=== PATIENT | female | born 1945 | race Caucasian/White ===

== ENCOUNTER 2020-03-12 10:18 | Emergency (ER) | payer MEDICARE, OTHER ==
[~2020-03-12] VITALS: Ht 160 cm; Wt 68.9 kg
[2020-03-12] MEDS ORDERED: HYDROMORPHONE 2 MG/1 ML DISP.SYRIN ONE (11:29)
[2020-03-12] MEDS ORDERED: ONDANSETRON 4 MG/2 ML VIAL ONE (11:29)
[2020-03-12] MEDS ORDERED: ONDANSETRON 4 MG/2 ML VIAL IM ONE (11:30)
[2020-03-12] MEDS ORDERED: HYDROMORPHONE 1 MG/1 ML DISP.SYRIN IM ONE (11:30)
--- NOTE | 2020-03-12 11:38 | NUR ---
PT WAS EVALUATED BY DR IBRAHIM. PT WAS D/C'd TO HOME . D/C INSTRUCTIONS GIVE TO THE PT BY DR IBRAHIM.
[2020-03-12 11:39] VITALS: BP 142/68
== END 2020-03-12 11:40 | disposition home or self-care (01) ==
LOC: ER 10:18
DX: M54.41 Lumbago with sciatica, right side (principal)
CPT/HCPCS: 96372 ×2; 99284; J1170; J2405; A4663

== ENCOUNTER 2021-08-31 11:37 | Emergency (ER) | payer MEDICARE, OTHER ==
[~2021-08-31] VITALS: Ht 165.1 cm; Wt 64.9 kg
[2021-08-31] MEDS ORDERED: GABA300C PO ×2 (12:21→12:23)
--- NOTE | 2021-08-31 12:36 | NUR ---
PATIENT WAS SEEN BY MD. KNEE IMMOBILIZER APPLIED AND INSTRUCTIONS ON USE GIVEN AND DEMONSTRATED. DC, RX AND FOLLOW UP INSTRUCTIONS GIVEN AND EXPLAINED TO PATIENT WHO STATES SHE UNDERSTANDS ALL INSTRUCTIONS
== END 2021-08-31 12:37 | disposition home or self-care (01) ==
LOC: ER 11:37
DX: M25.462 Effusion, left knee (principal); M35.3 Polymyalgia rheumatica; Z96.652 Presence of left artificial knee joint; R03.0 Elevated blood-pressure reading, without diagnosis of hypertension
CPT/HCPCS: A4663

== ENCOUNTER 2023-06-04 20:23 | Emergency (ER) | payer MEDICARE, OTHER ==
[~2023-06-04] VITALS: Ht 157.5 cm; Wt 65.8 kg
[~2023-06-04 20:23] MED LIST: GABA300C PO
[2023-06-04] MEDS ORDERED: NITROGLYCERIN 0.4 MG/TAB BOTTLE SL ONE ×2 (20:45→20:50)
[2023-06-04] MEDS ORDERED: NITROGLYCERIN OINT 1 GM PACKET TP ONE ×2 (20:45→20:50)
[2023-06-04] MEDS ORDERED: SWABABLE VALVE TRANSFER SET EA MC ONE (20:59)
[2023-06-04] MEDS ORDERED: IOHEXOL 350 100 ML INFUS..BTL ONE (20:59)
[2023-06-04] MEDS ORDERED: IV NORMAL SALINE 250 ML IV ONE (20:59)
[2023-06-04 21:08] LABS: CALCIUM 9.1 mg/dL (8.5-10.1); CARBON DIOXIDE 28 mmol/L (21-32); CHLORIDE 101 mmol/L (98-107); CREATININE 1.5 mg/dL (0.6-1.3); GLUCOSE 98 mg/dL (74-106); POTASSIUM 3.7 mmol/L (3.5-5.1); SODIUM SERUM 138 mmol/L (136-145); UREA NITROGEN, BLOOD 19 mg/dL (7-18)
[2023-06-04 21:15] LABS: BASOPHILS # (AUTO) 0.1 K/UL (0.0-0.2); BASOPHILS % (AUTO) 1.7 % (0.0-2.0); DIFFERENTIAL COMMENT 0; EOSINOPHILS # (AUTO) 0.1 K/uL (0.0-0.7); EOSINOPHILS % (AUTO) 1.5 % (0.0-7.0); HEMATOCRIT 34.7 % (31.2-41.9); LYMPHOCYTES # (AUTO) 1.6 K/uL (0.8-4.8); LYMPHOCYTES % (AUTO) 24.8 % (20.5-51.5); MEAN CORPUSCULAR HEMOGLOBIN 30.1 uug (24.7-32.8); MEAN CORPUSCULAR HGB CONC 35 g/dL (32.3-35.6); MEAN CORPUSCULAR VOLUME 87.2 fL (75.5-95.3); MONOCYTES # (AUTO) 0.2 K/uL (0.1-1.30); MONOCYTES % (AUTO) 2.5 % (0.0-11.0); NEUTROPHILS # (AUTO) 4.6 K/uL (1.8-8.9); NEUTROPHILS % (AUTO) 69.5 % (38.5-71.5); PLATELET COUNT (AUTO) 251 K/uL (179-408); RED BLOOD CELL COUNT(AUTO) 3.98 MIL/uL (3.63-4.92); RED CELL DISTRIBUTION WIDTH 13.8 % (12.3-17.7); WHITE BLOOD COUNT (AUTO) 6.6 K/uL (3.8-11.8)
[2023-06-04 21:19] LABS: ALANINE AMINOTRANSFERASE 118 U/L (14-59); ALBUMIN 3.7 g/dL (3.4-5.0); ALKALINE PHOSPHATASE 94 U/L (50-136); ASPARTATE AMINOTRANSFERASE 60 U/L (15-37); BILIRUBIN,DIRECT 0.2 mg/dL (0.0-0.2); BILIRUBIN,TOTAL 0.5 mg/dL (0.2-1.0); NT-PRO BNP 114 pg/mL (0-125); TOTAL PROTEIN, SERUM 6.8 g/dL (6.4-8.2)
[2023-06-04] MEDS ORDERED: DICYCLOMINE HCL LIQ 10 MG/5 ML UDC ONE (21:58)
[2023-06-04] MEDS ORDERED: MAG HYDROX/AL HYDROX/SIMETH 30 ML LIQUID UDC ONE (21:58)
[2023-06-04] MEDS ORDERED: LIDOCAINE VISCUS 2% 15 ML UDC ONE (21:58)
[2023-06-04] MEDS ORDERED: LIDOCAINE VISCUS 2% 15 ML UDC MM ONE (22:00)
[2023-06-04] MEDS ORDERED: DICYCLOMINE HCL LIQ 10 MG/5 ML UDC PO ONE (22:00)
[2023-06-04] MEDS ORDERED: MAG HYDROX/AL HYDROX/SIMETH 30 ML LIQUID UDC PO ONE (22:00)
[2023-06-04] MEDS ORDERED: diphenhydrAMINE 50 MG/1 ML VIAL ONE (23:10)
[2023-06-04] MEDS ORDERED: diphenhydrAMINE 50 MG/1 ML VIAL IV ONE (23:15)
[2023-06-04 23:45] VITALS: BP 122/65; TEMP 98.5; O2SAT 100
== END 2023-06-04 23:47 | disposition left against medical advice (07) ==
LOC: ER 20:26
DX: R07.89 Other chest pain (principal); R10.10 Upper abdominal pain, unspecified; R11.2 Nausea with vomiting, unspecified; K22.4 Dyskinesia of esophagus; Z98.890 Other specified postprocedural states; Z79.899 Other long term (current) drug therapy
CPT/HCPCS: 36415; 71045; 84484; 85025; 85730; 93005; A4606; A4663; J1200; J7040; Q9967

== ENCOUNTER 2024-07-24 22:30 | Emergency (ER) | payer MEDICARE, OTHER ==
[~2024-07-24] VITALS: Ht 157.5 cm; Wt 63.5 kg
[2024-07-24 23:02] LABS: BASOPHILS # (AUTO) 0.1 K/UL (0.0-0.2); BASOPHILS % (AUTO) 0.7 % (0.0-2.0); EOSINOPHILS # (AUTO) 0.2 K/uL (0.0-0.7); EOSINOPHILS % (AUTO) 1.9 % (0.0-7.0); HEMATOCRIT 35.1 % (31.2-41.9); HEMOGLOBIN 12.1 g/dL (10.9-14.3); LYMPHOCYTES # (AUTO) 2.3 K/uL (0.8-4.8); LYMPHOCYTES % (AUTO) 29.3 % (20.5-51.5); MEAN CORPUSCULAR HEMOGLOBIN 29.8 uug (24.7-32.8); MEAN CORPUSCULAR HGB CONC 35 g/dL (32.3-35.6); MEAN CORPUSCULAR VOLUME 86.2 fL (75.5-95.3); MONOCYTES # (AUTO) 0.6 K/uL (0.1-1.30); MONOCYTES % (AUTO) 7.8 % (0.0-11.0); NEUTROPHILS # (AUTO) 4.8 K/uL (1.8-8.9); NEUTROPHILS % (AUTO) 60.3 % (38.5-71.5); PLATELET COUNT (AUTO) 314 K/uL (179-408); RED BLOOD CELL COUNT(AUTO) 4.07 MIL/uL (3.63-4.92)
[2024-07-24 23:06] LABS: DIFFERENTIAL COMMENT 1
[2024-07-24] MEDS ORDERED: ACETAMINOPHEN 500 MG TABLET ONE (23:08)
[2024-07-24] MEDS ORDERED: METOCLOPRAMIDE HCL 10 MG/2 ML VIAL ONE (23:08)
[2024-07-24] MEDS ORDERED: LORAZEPAM 2 MG/1 ML VIAL ONE (23:09)
[2024-07-24] MEDS: LORAZEPAM 2 MG/1 ML VIAL IV ONE (23:14)
[2024-07-24] MEDS: METOCLOPRAMIDE HCL 10 MG/2 ML VIAL IV ONE (23:14)
[2024-07-24] MEDS: IV NORMAL SALINE 500 ML BAG IV ONE (23:14)
[2024-07-24] MEDS: ACETAMINOPHEN 500 MG TABLET PO ONE (23:14)
[2024-07-24 23:15] LABS: CALCIUM 8.9 mg/dL (8.5-10.1); CARBON DIOXIDE 29 mmol/L (21-32); CHLORIDE 94 mmol/L (98-107); CREATININE 1.1 mg/dL (0.6-1.3); GLUCOSE 111 mg/dL (74-106); POTASSIUM 3.7 mmol/L (3.5-5.1); SODIUM SERUM 132 mmol/L (136-145); UREA NITROGEN, BLOOD 11 mg/dL (7-18)
[2024-07-25 00:02] LABS: ALBUMIN 3.9 g/dL (3.4-5.0); BILIRUBIN,DIRECT 0.2 mg/dL (0.0-0.2); BILIRUBIN,TOTAL 0.8 mg/dL (0.2-1.0); TOTAL PROTEIN, SERUM 7.6 g/dL (6.4-8.2)
[2024-07-25 01:43] VITALS: BP 138/78; TEMP 98; O2SAT 100
== END 2024-07-25 01:43 | disposition home or self-care (01) ==
LOC: ER 22:32
DX: R42 Dizziness and giddiness (principal); J40 Bronchitis, not specified as acute or chronic; R06.02 Shortness of breath; R11.0 Nausea; R20.2 Paresthesia of skin; R51.9 Headache, unspecified; I10 Essential (primary) hypertension; K59.00 Constipation, unspecified; M35.3 Polymyalgia rheumatica; Z85.3 Personal history of malignant neoplasm of breast; Z90.49 Acquired absence of other specified parts of digestive tract; Z96.659 Presence of unspecified artificial knee joint; Z87.39 Personal history of other diseases of the musculoskeletal system and connective tissue
CPT/HCPCS: 99285; 96374; 70450; 71045; 96375; 80076; 80048; 83880; 85025; 85730; 84484; 36415; 93005; J2060; J2765; A4606; A4663; A9150